=== PATIENT | female | born 1950 | race Caucasian/White ===

== ENCOUNTER 2018-01-15 21:26 | Emergency (ER) | payer OTHER ==
[~2018-01-15] VITALS: Ht 157.5 cm; Wt 69.9 kg
[2018-01-15] MEDS ORDERED: NORVASC5 MG (21:41)
== END 2018-01-15 23:53 | disposition home or self-care (01) ==
LOC: ER 21:26
DX: J45.901 Unspecified asthma with (acute) exacerbation (principal)

== ENCOUNTER 2018-03-22 22:40 | Emergency (ER) | payer OTHER ==
[~2018-03-22] VITALS: Ht 157.5 cm; Wt 69.9 kg
[~2018-03-22 22:40] MED LIST: NORVASC5 MG
[2018-03-23] MEDS ORDERED: ULTRAM50 MG PO (03:59)
[2018-03-23] MEDS ORDERED: BACTRIM DS TAB1 EACH PO (03:59)
[2018-03-23] MEDS ORDERED: CELEBREX100 MG PO (03:59)
[2018-03-23] MEDS ORDERED: TAMS0.4C PO (03:59)
[2018-03-23] MEDS ORDERED: ZOFRAN ODT4 MG PO (04:05)
== END 2018-03-23 04:14 | disposition home or self-care (01) ==
LOC: ER 22:40
DX: N20.0 Calculus of kidney (principal)

== ENCOUNTER 2023-03-24 12:45 | Emergency (ER) | payer OTHER ==
[~2023-03-24] VITALS: Ht 162.6 cm; Wt 63.5 kg
[~2023-03-24 12:45] MED LIST changes: +BACTRIM DS TAB1 EACH PO; +CELEBREX100 MG PO; +TAMS0.4C PO; +ULTRAM50 MG PO; +ZOFRAN ODT4 MG PO
== END 2023-03-25 05:52 | disposition home or self-care (01) ==
LOC: ER 12:45
DX: K52.9 Noninfective gastroenteritis and colitis, unspecified (principal); Z20.822 Contact with and (suspected) exposure to COVID-19
CPT/HCPCS: 36415; 71045; 74018; 74176; 93005; 96365; 96366; 96372; 99284; J0744; J2250; J3490

== ENCOUNTER 2023-10-23 18:44 | Emergency (ER) | payer OTHER ==
[~2023-10-23] VITALS: Ht 157.5 cm; Wt 65.8 kg
[2023-10-23] MEDS ORDERED: ASPIRIN81 MG PO (19:39)
[2023-10-23] MEDS ORDERED: SINGULAIR10 MG (19:39)
[2023-10-23 22:10] LABS: HEMATOCRIT 42.9 % (36.0-45.00); HEMOGLOBIN 14.4 g/dL (12.0-15.00); MEAN CELL VOLUME 93.6 fL (80.00-100.00); MEAN CORPUSCULAR HEMOGLOBIN 31.5 pg (27.00-32.0); MEAN CORPUSCULAR HGB CONC 33.7 g/dl (32.0-36.0); PLATELET COUNT 251 K/uL (150-450); RED BLOOD COUNT 4.58 M/uL (4.00-6.00); RED CELL DISTRIBUTION WIDTH 13.4 % (11.5-14.5)
[2023-10-23 22:36] LABS: ALBUMIN 3.7 gm/dL (3.4-5.0); BILIRUBIN TOTAL 0.43 mg/dL (0.3-1.2); CALCIUM 9.8 mg/dL (8.5-10.1); CREATININE SERUM 0.68 mg/dL (0.55-1.02); GFR 85.05; GLOBULINA 3.5 G/DL (2.4-3.5); POTASSIUM 4.04 mEq/L (3.5-5.1); TOTAL PROTEIN 7.2 gm/dL (6.4-8.2)
[2023-10-24] MEDS ORDERED: KETOROLAC TROMETHAMINE 10 MG TABLET PO PRN (01:00)
== END 2023-10-24 02:40 | disposition home or self-care (01) ==
LOC: ER 18:44
PROVIDERS: Emergency Medicine
DX: J45.909 Unspecified asthma, uncomplicated (principal); R07.89 Other chest pain; R07.9 Chest pain, unspecified; Z20.822 Contact with and (suspected) exposure to COVID-19; I10 Essential (primary) hypertension